=== PATIENT | male | born 1945 | race Caucasian/White ===

== ENCOUNTER 2021-12-01 11:13 | Inpatient (IN) | payer MEDICARE ==
[2021-12-01] MEDS ORDERED: traZODone 50 MG Tab FTUBE SCH (21:00)
[2021-12-02] MEDS ORDERED: atorvaSTATin 40 MG Tab FTUBE SCH (09:00)
[2021-12-02] MEDS ORDERED: Aspirin 81 MG Tab.Chew FTUBE SCH (09:00)
[2021-12-02] MEDS ORDERED: Lisinopril 10 MG Tab FTUBE SCH (09:00)
[2021-12-02] MEDS: traZODone 50 MG Tab PO SCH (20:38)
[2021-12-03] MEDS: atorvaSTATin 40 MG Tab PO SCH (08:56)
[2021-12-03] MEDS: Aspirin 81 MG Tab.Chew PO SCH (08:56)
[2021-12-03] MEDS: Lisinopril 10 MG Tab PO SCH (08:56)
[2021-12-03] MEDS: traZODone 50 MG Tab PO SCH (19:59)
[2021-12-03] MEDS: Acetaminophen 325 MG Tab PO PRN (19:59)
[2021-12-04] MEDS: Acetaminophen 325 MG Tab PO PRN (07:57)
[2021-12-04] MEDS: atorvaSTATin 40 MG Tab PO SCH (07:59)
[2021-12-04] MEDS: Lisinopril 10 MG Tab PO SCH (07:59)
[2021-12-04] MEDS: Aspirin 81 MG Tab.Chew PO SCH (07:59)
[2021-12-04] MEDS: traZODone 50 MG Tab PO SCH (20:31)
[2021-12-05] MEDS: Lisinopril 10 MG Tab PO SCH (08:12)
[2021-12-05] MEDS: Aspirin 81 MG Tab.Chew PO SCH (08:12)
[2021-12-05] MEDS: atorvaSTATin 40 MG Tab PO SCH (08:12)
[2021-12-05] MEDS: traZODone 50 MG Tab PO SCH (20:58)
[2021-12-06] MEDS: Acetaminophen 325 MG Tab PO PRN ×2 (02:15→21:12)
[2021-12-06] MEDS: Lisinopril 10 MG Tab PO SCH (09:31)
[2021-12-06] MEDS: atorvaSTATin 40 MG Tab PO SCH (09:32)
[2021-12-06] MEDS: Aspirin 81 MG Tab.Chew PO SCH (09:32)
[2021-12-06] MEDS: traZODone 50 MG Tab PO SCH (20:28)
[2021-12-07] MEDS: Lisinopril 10 MG Tab PO SCH (08:39)
[2021-12-07] MEDS: atorvaSTATin 40 MG Tab PO SCH (08:39)
[2021-12-07] MEDS: Aspirin 81 MG Tab.Chew PO SCH (08:39)
[2021-12-07] MEDS: Acetaminophen 325 MG Tab PO PRN (20:44)
[2021-12-07] MEDS: traZODone 50 MG Tab PO SCH (20:44)
[2021-12-08] MEDS: Acetaminophen 325 MG Tab PO PRN ×2 (02:53→21:16)
[2021-12-08] MEDS: Aspirin 81 MG Tab.Chew PO SCH (08:14)
[2021-12-08] MEDS: atorvaSTATin 40 MG Tab PO SCH (08:15)
[2021-12-08] MEDS: Lisinopril 10 MG Tab PO SCH (10:50)
[2021-12-08] MEDS: traZODone 50 MG Tab PO SCH (21:16)
[2021-12-09] MEDS: Acetaminophen 325 MG Tab PO PRN ×2 (04:23→21:01)
[2021-12-09] MEDS: Aspirin 81 MG Tab.Chew PO SCH (09:52)
[2021-12-09] MEDS: atorvaSTATin 40 MG Tab PO SCH (09:52)
[2021-12-09] MEDS: Lisinopril 10 MG Tab PO SCH (09:56)
[2021-12-09] MEDS: traZODone 50 MG Tab PO SCH (20:59)
[2021-12-10] MEDS: Acetaminophen 325 MG Tab PO PRN ×2 (02:43→21:43)
[2021-12-10] MEDS: Lisinopril 10 MG Tab PO SCH (09:54)
[2021-12-10] MEDS: atorvaSTATin 40 MG Tab PO SCH (09:54)
[2021-12-10] MEDS: Aspirin 81 MG Tab.Chew PO SCH (09:54)
[2021-12-10] MEDS: traZODone 50 MG Tab PO SCH (21:42)
[2021-12-11] MEDS: atorvaSTATin 40 MG Tab PO SCH (08:34)
[2021-12-11] MEDS: Lisinopril 10 MG Tab PO SCH (08:34)
[2021-12-11] MEDS: Aspirin 81 MG Tab.Chew PO SCH (08:34)
[2021-12-11] MEDS: traZODone 50 MG Tab PO SCH (20:41)
[2021-12-11] MEDS: Acetaminophen 325 MG Tab PO PRN (20:42)
[2021-12-12] MEDS: Acetaminophen 325 MG Tab PO PRN (04:49)
[2021-12-12] MEDS: atorvaSTATin 40 MG Tab PO SCH (08:45)
[2021-12-12] MEDS: Aspirin 81 MG Tab.Chew PO SCH (08:45)
[2021-12-12] MEDS: Lisinopril 10 MG Tab PO SCH (08:45)
[2021-12-12] MEDS: traZODone 50 MG Tab PO SCH (20:51)
[2021-12-13] MEDS: Aspirin 81 MG Tab.Chew PO SCH (08:31)
[2021-12-13] MEDS: atorvaSTATin 40 MG Tab PO SCH (08:31)
[2021-12-13] MEDS: Lisinopril 10 MG Tab PO SCH (08:31)
[2021-12-13] MEDS: traZODone 50 MG Tab PO SCH (20:56)
[2021-12-14] MEDS: Lisinopril 10 MG Tab PO SCH (08:34)
[2021-12-14] MEDS: Aspirin 81 MG Tab.Chew PO SCH (08:34)
[2021-12-14] MEDS: atorvaSTATin 40 MG Tab PO SCH (08:35)
[2021-12-14] MEDS: traZODone 50 MG Tab PO SCH (21:07)
[2021-12-15] MEDS: atorvaSTATin 40 MG Tab PO SCH (08:44)
[2021-12-15] MEDS: Aspirin 81 MG Tab.Chew PO SCH (08:44)
[2021-12-15] MEDS: Lisinopril 10 MG Tab PO SCH (08:44)
[2021-12-15] MEDS: traZODone 50 MG Tab PO SCH (20:41)
[2021-12-16] MEDS: Aspirin 81 MG Tab.Chew PO SCH (08:09)
[2021-12-16] MEDS: atorvaSTATin 40 MG Tab PO SCH (08:09)
[2021-12-16] MEDS: Lisinopril 10 MG Tab PO SCH (08:09)
== END 2021-12-16 10:15 | disposition home health service (06) | DRG 948 ==
LOC: FB.MS 12:08
PROVIDERS: ADMIT Family Medicine; ATTEND Family Medicine
DX: R53.1 Weakness (principal); E78.5 Hyperlipidemia, unspecified; I10 Essential (primary) hypertension; R29.6 Repeated falls; E78.00 Pure hypercholesterolemia, unspecified; M54.59 Other low back pain; Z20.822 Contact with and (suspected) exposure to COVID-19; Z90.89 Acquired absence of other organs; Z97.8 Presence of other specified devices; Z86.73 Personal history of transient ischemic attack (TIA), and cerebral infarction without residual deficits; Z79.02 Long term (current) use of antithrombotics/antiplatelets; Z79.82 Long term (current) use of aspirin; Z79.899 Other long term (current) drug therapy; Z90.49 Acquired absence of other specified parts of digestive tract
CPT/HCPCS: 97110-GO; 97110-GP; 97112-GO; 97112-GP; 97116-GP; 97161-GP; 97166-GO; 97530-GO; 97535-GO; A9270-GY; U0002

== ENCOUNTER 2022-09-08 12:21 | Emergency (ER) | payer OTHER, MEDICARE ==
[2022-09-08] MEDS ORDERED: fentaNYL 100 MCG/2 ML SDV IVPUSH STA (13:07)
[2022-09-08] MEDS ORDERED: Sodium Chloride 0.9% 1,000 ML IV SCH (13:15)
[2022-09-08 13:45] LABS: ESTIMATED GFR 57 mL/min (>60)
[2022-09-08] MEDS ORDERED: Ketorolac 30 MG/ML SDV IVPUSH ONE (14:44)
[2022-09-08] MEDS ORDERED: Acetaminophen/oxyCODONE 325-5 MG Tab PO STA (14:44)
== END 2022-09-08 17:25 | disposition home or self-care (01) ==
LOC: FB.ED 12:21
DX: M51.36 Other intervertebral disc degeneration, lumbar region (principal); M51.34 Other intervertebral disc degeneration, thoracic region; E78.00 Pure hypercholesterolemia, unspecified; I10 Essential (primary) hypertension; Z79.82 Long term (current) use of aspirin; Z79.899 Other long term (current) drug therapy; Z90.49 Acquired absence of other specified parts of digestive tract
CPT/HCPCS: 36415; 71045; 72128; 72131; 80053; 81001; 82550; 83880; 84484; 85025; 93005; 93010; 96361; 96374; 96375; 99284; 99285; A9270; J1885; J3010; J7030

== ENCOUNTER 2022-09-21 08:56 | Inpatient (IN) | payer OTHER, MEDICARE ==
[2022-09-21] MEDS ORDERED: Albuterol 8 GM Inhaler INH PRN (14:09)
[2022-09-21] MEDS ORDERED: Calcium Carbonate 500 MG Tab.Chew PO PRN (14:43)
[2022-09-21] MEDS ORDERED: Nicotine Polacrilex 2 MG Gum BUCCAL PRN (14:45)
[2022-09-21] MEDS: Gabapentin 300 MG Cap PO SCH (21:32)
[2022-09-21] MEDS: traZODone 50 MG Tab PO SCH (21:33)
[2022-09-21] MEDS: Docusate Sodium 100 MG Cap PO SCH (21:33)
[2022-09-21] MEDS: atorvaSTATin 40 MG Tab PO SCH (21:33)
[2022-09-22] MEDS: Pantoprazole 40 MG Tab.CR PO SCH (07:28)
[2022-09-22] MEDS: Formoterol/Mometasone 100-5 MCG 8.8 GM Inhaler IH SCH ×2 (08:05→20:42)
[2022-09-22] MEDS: Docusate Sodium 100 MG Cap PO SCH ×2 (08:05→20:45)
[2022-09-22] MEDS: Lidocaine 4% 1 each Patch TOP SCH (08:05)
[2022-09-22] MEDS: Nicotine 14 MG/24 Hr Patch TOP SCH (08:07)
[2022-09-22] MEDS: Aspirin 81 MG Tab.EC PO SCH (08:07)
[2022-09-22] MEDS: amLODIPine 5 MG Tab PO SCH (08:07)
[2022-09-22] MEDS: Gabapentin 300 MG Cap PO SCH ×3 (08:09→20:42)
[2022-09-22] MEDS: Acetaminophen 500 MG Tab PO PRN (17:34)
[2022-09-22] MEDS: traZODone 50 MG Tab PO SCH (20:45)
[2022-09-22] MEDS: atorvaSTATin 40 MG Tab PO SCH (20:45)
[2022-09-23] MEDS: Pantoprazole 40 MG Tab.CR PO SCH (06:49)
[2022-09-23] MEDS: amLODIPine 5 MG Tab PO SCH (08:20)
[2022-09-23] MEDS: Lidocaine 4% 1 each Patch TOP SCH (08:20)
[2022-09-23] MEDS: Formoterol/Mometasone 100-5 MCG 8.8 GM Inhaler IH SCH ×2 (08:24→20:26)
[2022-09-23] MEDS: Gabapentin 300 MG Cap PO SCH ×3 (08:24→20:27)
[2022-09-23] MEDS: Acetaminophen 500 MG Tab PO PRN (08:24)
[2022-09-23] MEDS: Aspirin 81 MG Tab.EC PO SCH (08:24)
[2022-09-23] MEDS: Docusate Sodium 100 MG Cap PO SCH ×2 (08:24→20:26)
[2022-09-23] MEDS: Nicotine 14 MG/24 Hr Patch TOP SCH (08:26)
[2022-09-23] MEDS: traZODone 50 MG Tab PO SCH (20:26)
[2022-09-23] MEDS: atorvaSTATin 40 MG Tab PO SCH (20:27)
[2022-09-24] MEDS: Acetaminophen 500 MG Tab PO PRN ×3 (04:00→23:23)
[2022-09-24] MEDS: Pantoprazole 40 MG Tab.CR PO SCH (06:51)
[2022-09-24] MEDS: Lidocaine 4% 1 each Patch TOP SCH (09:00)
[2022-09-24] MEDS: Docusate Sodium 100 MG Cap PO SCH ×2 (10:43→20:52)
[2022-09-24] MEDS: Formoterol/Mometasone 100-5 MCG 8.8 GM Inhaler IH SCH ×2 (10:44→20:51)
[2022-09-24] MEDS: Nicotine 14 MG/24 Hr Patch TOP SCH (10:44)
[2022-09-24] MEDS: Aspirin 81 MG Tab.EC PO SCH (10:46)
[2022-09-24] MEDS: Gabapentin 300 MG Cap PO SCH ×3 (10:46→20:50)
[2022-09-24] MEDS: amLODIPine 5 MG Tab PO SCH (10:47)
[2022-09-24] MEDS: Melatonin 3 MG Tab PO SCH (20:50)
[2022-09-24] MEDS: atorvaSTATin 40 MG Tab PO SCH (20:51)
[2022-09-24] MEDS: traZODone 50 MG Tab PO SCH (20:51)
[2022-09-25] MEDS: Pantoprazole 40 MG Tab.CR PO SCH (06:53)
[2022-09-25] MEDS: Formoterol/Mometasone 100-5 MCG 8.8 GM Inhaler IH SCH ×2 (08:35→21:20)
[2022-09-25] MEDS: Nicotine 14 MG/24 Hr Patch TOP SCH (08:35)
[2022-09-25] MEDS: Lidocaine 4% 1 each Patch TOP SCH (08:35)
[2022-09-25] MEDS: Aspirin 81 MG Tab.EC PO SCH (08:35)
[2022-09-25] MEDS: Docusate Sodium 100 MG Cap PO SCH ×2 (08:35→21:20)
[2022-09-25] MEDS: amLODIPine 5 MG Tab PO SCH (08:35)
[2022-09-25] MEDS: Gabapentin 300 MG Cap PO SCH ×3 (08:38→21:26)
[2022-09-25] MEDS: Acetaminophen 500 MG Tab PO PRN (12:45)
[2022-09-25] MEDS: atorvaSTATin 40 MG Tab PO SCH (21:20)
[2022-09-25] MEDS: Melatonin 3 MG Tab PO SCH (21:20)
[2022-09-25] MEDS: traZODone 50 MG Tab PO SCH (21:21)
[2022-09-26] MEDS: Pantoprazole 40 MG Tab.CR PO SCH (06:49)
[2022-09-26] MEDS: Docusate Sodium 100 MG Cap PO SCH ×2 (08:25→22:17)
[2022-09-26] MEDS: Gabapentin 300 MG Cap PO SCH ×3 (08:25→22:30)
[2022-09-26] MEDS: Nicotine 14 MG/24 Hr Patch TOP SCH (08:26)
[2022-09-26] MEDS: Lidocaine 4% 1 each Patch TOP SCH (08:26)
[2022-09-26] MEDS: Formoterol/Mometasone 100-5 MCG 8.8 GM Inhaler IH SCH ×2 (08:26→22:18)
[2022-09-26] MEDS: amLODIPine 5 MG Tab PO SCH (08:27)
[2022-09-26] MEDS: Aspirin 81 MG Tab.EC PO SCH (08:27)
[2022-09-26] MEDS: atorvaSTATin 40 MG Tab PO SCH (22:18)
[2022-09-26] MEDS: Melatonin 3 MG Tab PO SCH (22:19)
[2022-09-26] MEDS: traZODone 50 MG Tab PO SCH (22:22)
[2022-09-27] MEDS: Pantoprazole 40 MG Tab.CR PO SCH (07:06)
[2022-09-27] MEDS: Aspirin 81 MG Tab.EC PO SCH (08:22)
[2022-09-27] MEDS: Docusate Sodium 100 MG Cap PO SCH ×2 (08:22→20:15)
[2022-09-27] MEDS: Formoterol/Mometasone 100-5 MCG 8.8 GM Inhaler IH SCH ×2 (08:22→20:15)
[2022-09-27] MEDS: amLODIPine 5 MG Tab PO SCH (08:25)
[2022-09-27] MEDS: Nicotine 14 MG/24 Hr Patch TOP SCH (09:28)
[2022-09-27] MEDS: Lidocaine 4% 1 each Patch TOP SCH (09:29)
[2022-09-27] MEDS: Gabapentin 300 MG Cap PO SCH ×3 (09:30→20:15)
[2022-09-27] MEDS: atorvaSTATin 40 MG Tab PO SCH (20:14)
[2022-09-27] MEDS: Melatonin 3 MG Tab PO SCH (20:14)
[2022-09-27] MEDS: traZODone 50 MG Tab PO SCH (20:15)
[2022-09-28] MEDS: Pantoprazole 40 MG Tab.CR PO SCH (06:52)
[2022-09-28] MEDS: Formoterol/Mometasone 100-5 MCG 8.8 GM Inhaler IH SCH ×2 (09:19→20:15)
[2022-09-28] MEDS: Gabapentin 300 MG Cap PO SCH ×3 (09:19→20:14)
[2022-09-28] MEDS: Docusate Sodium 100 MG Cap PO SCH ×2 (09:19→20:15)
[2022-09-28] MEDS: Aspirin 81 MG Tab.EC PO SCH (09:19)
[2022-09-28] MEDS: Nicotine 14 MG/24 Hr Patch TOP SCH (09:20)
[2022-09-28] MEDS: amLODIPine 5 MG Tab PO SCH (09:20)
[2022-09-28] MEDS: Lidocaine 4% 1 each Patch TOP SCH (09:21)
[2022-09-28] MEDS: traZODone 50 MG Tab PO SCH (20:15)
[2022-09-28] MEDS: Melatonin 3 MG Tab PO SCH (20:15)
[2022-09-28] MEDS: atorvaSTATin 40 MG Tab PO SCH (20:15)
[2022-09-29] MEDS: Pantoprazole 40 MG Tab.CR PO SCH (06:50)
[2022-09-29 07:26] VITALS: BP 115/59; PULSE 64
[2022-09-29] MEDS: Formoterol/Mometasone 100-5 MCG 8.8 GM Inhaler IH SCH (08:04)
[2022-09-29] MEDS: Nicotine 14 MG/24 Hr Patch TOP SCH (08:04)
[2022-09-29] MEDS: Lidocaine 4% 1 each Patch TOP SCH (08:04)
[2022-09-29] MEDS: Aspirin 81 MG Tab.EC PO SCH (08:04)
[2022-09-29] MEDS: amLODIPine 5 MG Tab PO SCH (08:05)
[2022-09-29] MEDS: Docusate Sodium 100 MG Cap PO SCH (08:05)
[2022-09-29] MEDS: Gabapentin 300 MG Cap PO SCH (08:08)
== END 2022-09-29 11:15 | disposition home health service (06) | DRG 559 ==
LOC: FB.MS 12:13
PROVIDERS: ADMIT Family Medicine; ATTEND Student in an Organized Health Care Education/Training Program
DX: S32.040D Wedge compression fracture of fourth lumbar vertebra, subsequent encounter for fracture with routine healing (principal); U07.1 COVID-19; E87.1 Hypo-osmolality and hyponatremia; J43.9 Emphysema, unspecified; M51.36 Other intervertebral disc degeneration, lumbar region; E78.5 Hyperlipidemia, unspecified; I10 Essential (primary) hypertension; E78.2 Mixed hyperlipidemia; R29.6 Repeated falls; E78.00 Pure hypercholesterolemia, unspecified; F17.200 Nicotine dependence, unspecified, uncomplicated; R53.1 Weakness; Z79.82 Long term (current) use of aspirin; Z79.899 Other long term (current) drug therapy; Z86.73 Personal history of transient ischemic attack (TIA), and cerebral infarction without residual deficits
CPT/HCPCS: 97116-GP; 97161-GP; 97165-GO; 97530-GO; 97530-GP; 97535-GO; 97760-GO; A9270-GY

== ENCOUNTER 2023-01-23 07:24 | Day surgery (SDC) | payer MEDICARE ==
[2023-01-23] MEDS ORDERED: Midazolam 1 MG/ML 2 ML SDV IV ONE (07:25)
[2023-01-23] MEDS ORDERED: fentaNYL 100 MCG/2 ML SDV IV ONE (07:25)
[2023-01-23] MEDS ORDERED: Albuterol 6.7 GM Inhaler INH ONE (07:25)
[2023-01-23] MEDS ORDERED: Sodium Chloride 0.9% 10 ML Syringe FLUSH PRN (07:30)
[2023-01-23] MEDS ORDERED: Lactated Ringers 1,000 ML IV PRN (07:30)
[2023-01-23] MEDS ORDERED: acetaZOLAMIDE 500 MG Cap.ER PO ONE (09:30)
== END 2023-01-23 09:55 | disposition home or self-care (01) ==
LOC: FB.SDS 07:24
PROVIDERS: ATTEND Ophthalmology
DX: H25.812 Combined forms of age-related cataract, left eye (principal); I10 Essential (primary) hypertension; R53.1 Weakness; I50.30 Unspecified diastolic (congestive) heart failure; Z86.73 Personal history of transient ischemic attack (TIA), and cerebral infarction without residual deficits
CPT/HCPCS: 00142; A9270-GY; J2250; J3010; J3490; V2632

== ENCOUNTER 2023-02-13 06:43 | Day surgery (SDC) | payer MEDICARE ==
[2023-02-13] MEDS ORDERED: Midazolam 1 MG/ML 2 ML SDV IV ONE (06:44)
[2023-02-13] MEDS ORDERED: fentaNYL 100 MCG/2 ML SDV IV ONE (06:44)
[2023-02-13] MEDS ORDERED: Lactated Ringers 1,000 ML IV PRN (06:45)
[2023-02-13] MEDS: Sodium Chloride 0.9% 10 ML Syringe FLUSH PRN (07:30)
[2023-02-13] MEDS: acetaZOLAMIDE 500 MG Cap.ER PO ONE (09:15)
== END 2023-02-13 09:36 | disposition home or self-care (01) ==
LOC: FB.SDS 06:43
PROVIDERS: ATTEND Ophthalmology
DX: H25.9 Unspecified age-related cataract (principal); J44.9 Chronic obstructive pulmonary disease, unspecified; Z86.73 Personal history of transient ischemic attack (TIA), and cerebral infarction without residual deficits; Z79.899 Other long term (current) drug therapy
CPT/HCPCS: 00142; A9270-GY; J2250; J3010; J3490; V2632

== ENCOUNTER 2024-11-06 15:29 | Inpatient (IN) | payer MEDICARE ==
[2024-11-06] MEDS: Sodium Chloride 0.9% 1,000 ML IV SCH ×2 (16:02→20:31)
[2024-11-06 16:09] LABS: HEMATOCRIT 33.3 % (38.3-50.1); HEMOGLOBIN 11.3 g/dL (12.9-17.7); MEAN CORPUSCULAR HEMOGLOBIN 31.1 pg (27.0-33.3); MEAN CORPUSCULAR HGB CONC 33.9 g/dL (28.7-35.3); MEAN CORPUSCULAR VOLUME 91.9 fL (80.8-98.7); MEAN PLATELET VOLUME 7.3 fL (6.7-11.0); PLATELET COUNT,PLT 776 x10(3)uL (117-477); RED BLOOD CELL COUNT 3.62 x10(6)uL (3.90-5.90); RED CELL DISTRIBUTION WIDTH 14.2 % (12.4-15.0); WHITE BLOOD CELL COUNT,WBC 27.9 x10-3/uL (3.2-10.1)
[2024-11-06 16:14] LABS: BLOOD UREA NITROGEN,BUN 23 mg/dL (7-18); BUN/CREATININE RATIO 16.4 (9-20); CALCIUM 8.5 mg/dL (8.6-10.2); CARBON DIOXIDE,CO2 25 mmol/L (21-32); CHLORIDE,CL 102 mmol/L (100-110); CREATININE 1.4 mg/dL (0.70-1.30); EST CRCL DRUG DOSING (CG) 35.15 mL/min; ESTIMATED GFR 52 mL/min (>60); GLUCOSE RANDOM 116 mg/dL (80-116); POTASSIUM,K 4.4 mmol/L (3.5-5.3); SODIUM,NA 134 mmol/L (135-145)
[2024-11-06 16:20] LABS: A/G RATIO 0.3; ALANINE AMINOTRANSFERASE,ALT 50 U/L (12-36); ALKALINE PHOSPHATASE 102 IU/L (56-112); ASPARTATE AMNIOTRANSFERASE,AST 69 IU/L (5-25); BILIRUBIN TOTAL 0.3 mg/dL (0.1-1.3); PROTEIN TOTAL,TP 6.9 g/dL (6.0-8.0)
[2024-11-06 16:24] LABS: LACTIC ACID 0.8 mmol/L (0.4-2.0)
[2024-11-06 16:27] LABS: TROPONIN I 6.2 pg/mL (4.0-60.3)
[2024-11-06 16:31] LABS: ALBUMIN 1.6 g/dL (3.2-4.6)
[2024-11-06 16:32] LABS: BAND PERCENT MAN 5 % (0-6); BASOPHILS PERCENT MAN 1 % (0-2); EOSINOPHILS PERCENT MAN 3 % (0-5); LYMPHOCYTES PERCENT MAN 10 % (13-37); MONOCYTES PERCENT MAN 6 % (4-12); SEG NEUTROPHILS PERCENT MAN 75 % (46-82)
[2024-11-06] MEDS: cefTRIAXone 1 GM Vial IVPUSH SCH (17:18)
[2024-11-06] MEDS ORDERED: Ondansetron 4 MG/2 ML SDV IV PRN (17:20)
[2024-11-06] MEDS ORDERED: Sennosides/Docusate Sodium 50-8.6 MG Tab PO PRN (17:20)
[2024-11-06] MEDS: Azithromycin 500 MG in Sodium Chloride 0.9% 250 ML IV SCH (17:25)
[2024-11-06 18:35] LABS: BILIRUBIN,URINE NEGATIVE (NEGATIVE); GLUCOSE,URINE NORMAL (NORMAL); KETONES,URINE NEGATIVE (NEGATIVE); LEUKOCYTE ESTERASE,URINE NEGATIVE (NEGATIVE); NITRITE,URINE NEGATIVE (NEGATIVE); OCCULT BLOOD,URINE TRACE (NEGATIVE); PROTEIN,URINE TRACE mg/dL (NEGATIVE); UROBILINOGEN,URINE 4 mg/dL (NEGATIVE)
[2024-11-06 18:38] LABS: APPEARANCE,URINE CLEAR (CLEAR); COLOR,URINE YELLOW (YELLOW)
[2024-11-06 18:39] LABS: BACTERIA,URINE OCCASIONAL (NS); RBC,URINE 0-5 (0-5); SQUAMOUS EPITHELIAL CELLS,UR OCCASIONAL (NS,R,O); WBC,URINE 0-5 (0-5)
[2024-11-06] MEDS: Albuterol/Ipratropium 3.0-0.5 MG/3 ML Neb Soln NEB SCH (20:26)
[2024-11-06] MEDS: Enoxaparin 40 MG/0.4 ML Syringe SUBCUT SCH (20:53)
[2024-11-07] MEDS: Acetaminophen 325 MG Tab PO PRN (01:01)
[2024-11-07] MEDS: Enoxaparin 40 MG/0.4 ML Syringe SUBCUT SCH (07:12)
[2024-11-07 07:21] LABS: HEMATOCRIT 32.8 % (38.3-50.1); HEMOGLOBIN 10.9 g/dL (12.9-17.7); MEAN CORPUSCULAR HEMOGLOBIN 30.5 pg (27.0-33.3); MEAN CORPUSCULAR HGB CONC 33.3 g/dL (28.7-35.3); MEAN CORPUSCULAR VOLUME 91.6 fL (80.8-98.7); MEAN PLATELET VOLUME 6.9 fL (6.7-11.0); PLATELET COUNT,PLT 716 x10(3)uL (117-477); RED BLOOD CELL COUNT 3.59 x10(6)uL (3.90-5.90); RED CELL DISTRIBUTION WIDTH 14.4 % (12.4-15.0)
[2024-11-07 07:34] LABS: A/G RATIO 0.3; ALANINE AMINOTRANSFERASE,ALT 41 U/L (12-36); ALKALINE PHOSPHATASE 93 IU/L (56-112); ASPARTATE AMNIOTRANSFERASE,AST 46 IU/L (5-25); BILIRUBIN TOTAL 0.3 mg/dL (0.1-1.3); BLOOD UREA NITROGEN,BUN 16 mg/dL (7-18); CARBON DIOXIDE,CO2 23 mmol/L (21-32); CHLORIDE,CL 104 mmol/L (100-110); EST CRCL DRUG DOSING (CG) 50.58 mL/min; ESTIMATED GFR 78 mL/min (>60); GLUCOSE RANDOM 117 mg/dL (80-116); POTASSIUM,K 4.3 mmol/L (3.5-5.3); SODIUM,NA 135 mmol/L (135-145)
[2024-11-07 07:48] LABS: LYMPHOCYTES PERCENT MAN 6 % (13-37); MONOCYTES PERCENT MAN 4 % (4-12); SEG NEUTROPHILS PERCENT MAN 90 % (46-82)
[2024-11-07 08:01] LABS: ALBUMIN 1.3 g/dL (3.2-4.6)
[2024-11-07] MEDS ORDERED: Albuterol 6.7 GM Inhaler INH PRN (10:52)
[2024-11-07] MEDS: Nicotine 14 MG/24 Hr Patch TRDERM SCH (11:28)
[2024-11-07] MEDS: Lidocaine 4% Patch TOP SCH (11:29)
[2024-11-07] MEDS: Aspirin 81 MG Tab.EC PO SCH (11:30)
[2024-11-07] MEDS: cefTRIAXone 2 GM Vial IVPUSH SCH (14:02)
[2024-11-07] MEDS: Gabapentin 300 MG Cap PO SCH (14:03)
[2024-11-07] MEDS: Rosuvastatin 10 MG Tab PO SCH (20:58)
[2024-11-07] MEDS: traZODone 50 MG Tab PO SCH (20:59)
[2024-11-08] MEDS: Benzonatate 100 MG Cap PO PRN ×2 (03:57→13:44)
[2024-11-08] MEDS: Albuterol 0.083% 2.5 MG/3 ML Neb Soln NEB PRN (03:57)
[2024-11-08 06:36] LABS: HEMATOCRIT 29.9 % (38.3-50.1); HEMOGLOBIN 10.3 g/dL (12.9-17.7); MEAN CORPUSCULAR HEMOGLOBIN 31.4 pg (27.0-33.3); MEAN CORPUSCULAR HGB CONC 34.5 g/dL (28.7-35.3); MEAN PLATELET VOLUME 6.5 fL (6.7-11.0); PLATELET COUNT,PLT 722 x10(3)uL (117-477); RED BLOOD CELL COUNT 3.29 x10(6)uL (3.90-5.90); RED CELL DISTRIBUTION WIDTH 14.3 % (12.4-15.0); WHITE BLOOD CELL COUNT,WBC 21.7 x10-3/uL (3.2-10.1)
[2024-11-08 06:43] LABS: BLOOD UREA NITROGEN,BUN 8 mg/dL (7-18); BUN/CREATININE RATIO 8.9 (9-20); CALCIUM 7.9 mg/dL (8.6-10.2); CARBON DIOXIDE,CO2 22 mmol/L (21-32); CHLORIDE,CL 105 mmol/L (100-110); CREATININE 0.9 mg/dL (0.70-1.30); ESTIMATED GFR 88 mL/min (>60); GLUCOSE RANDOM 125 mg/dL (80-116); POTASSIUM,K 4.2 mmol/L (3.5-5.3); SODIUM,NA 135 mmol/L (135-145)
[2024-11-08 06:50] LABS: LYMPHOCYTES PERCENT MAN 5 % (13-37); MONOCYTES PERCENT MAN 2 % (4-12); SEG NEUTROPHILS PERCENT MAN 93 % (46-82)
[2024-11-08] MEDS: Lisinopril 5 MG Tab PO SCH (10:08)
[2024-11-08] MEDS: Tiotropium Bromide 4 GM Inhalation Spray (2.5mcg/1 dose; 10 doses) INH SCH (10:09)
[2024-11-08] MEDS: Multivitamin Tab PO SCH (10:10)
[2024-11-08] MEDS: methylPREDNISolone Sodium Succinate 125 MG/2 ML SDV IVPUSH SCH (11:15)
[2024-11-09 04:45] LABS: ALBUMIN/CREATININE RATIO 19 mg/g (0-30); CREATININE,URINE - PER VOLUME 210 mg/dL; HOURS COLLECTED Random hr; TOTAL VOLUME Random mL
[2024-11-09 06:44] LABS: HEMATOCRIT 33.3 % (38.3-50.1); HEMOGLOBIN 11.3 g/dL (12.9-17.7); MEAN CORPUSCULAR HEMOGLOBIN 31.1 pg (27.0-33.3); MEAN CORPUSCULAR VOLUME 91.4 fL (80.8-98.7); MEAN PLATELET VOLUME 7.3 fL (6.7-11.0); PLATELET COUNT,PLT 779 x10(3)uL (117-477); RED BLOOD CELL COUNT 3.64 x10(6)uL (3.90-5.90); RED CELL DISTRIBUTION WIDTH 14.3 % (12.4-15.0); WHITE BLOOD CELL COUNT,WBC 14.8 x10-3/uL (3.2-10.1)
[2024-11-09 06:50] LABS: BLOOD UREA NITROGEN,BUN 10 mg/dL (7-18); BUN/CREATININE RATIO 12.5 (9-20); CALCIUM 8.7 mg/dL (8.6-10.2); CARBON DIOXIDE,CO2 22 mmol/L (21-32); CHLORIDE,CL 106 mmol/L (100-110); CREATININE 0.8 mg/dL (0.70-1.30); EST CRCL DRUG DOSING (CG) 63.22 mL/min; ESTIMATED GFR 91 mL/min (>60); GLUCOSE RANDOM 165 mg/dL (80-116); POTASSIUM,K 4.5 mmol/L (3.5-5.3); SODIUM,NA 137 mmol/L (135-145)
[2024-11-09 07:14] LABS: BAND PERCENT MAN 1 % (0-6); LYMPHOCYTES PERCENT MAN 6 % (13-37); MONOCYTES PERCENT MAN 1 % (4-12); SEG NEUTROPHILS PERCENT MAN 92 % (46-82)
[2024-11-09] MEDS: Sodium Chloride 0.9% 10 ML Syringe FLUSH PRN (11:05)
[2024-11-10 06:53] LABS: HEMATOCRIT 30.5 % (38.3-50.1); HEMOGLOBIN 10.4 g/dL (12.9-17.7); MEAN CORPUSCULAR HEMOGLOBIN 30.8 pg (27.0-33.3); MEAN CORPUSCULAR VOLUME 90.8 fL (80.8-98.7); PLATELET COUNT,PLT 721 x10(3)uL (117-477); RED BLOOD CELL COUNT 3.36 x10(6)uL (3.90-5.90); RED CELL DISTRIBUTION WIDTH 14.2 % (12.4-15.0); WHITE BLOOD CELL COUNT,WBC 18.4 x10-3/uL (3.2-10.1)
[2024-11-10 06:54] LABS: BLOOD UREA NITROGEN,BUN 14 mg/dL (7-18); BUN/CREATININE RATIO 17.5 (9-20); CALCIUM 8.1 mg/dL (8.6-10.2); CARBON DIOXIDE,CO2 21 mmol/L (21-32); CHLORIDE,CL 108 mmol/L (100-110); CREATININE 0.8 mg/dL (0.70-1.30); EST CRCL DRUG DOSING (CG) 63.22 mL/min; ESTIMATED GFR 91 mL/min (>60); GLUCOSE RANDOM 132 mg/dL (80-116); POTASSIUM,K 4.4 mmol/L (3.5-5.3); SODIUM,NA 137 mmol/L (135-145)
[2024-11-10 07:25] LABS: EOSINOPHILS PERCENT MAN 1 % (0-5); LYMPHOCYTES PERCENT MAN 7 % (13-37); MONOCYTES PERCENT MAN 1 % (4-12); SEG NEUTROPHILS PERCENT MAN 91 % (46-82)
[2024-11-10] MEDS ORDERED: Fluticasone NASAL Spray 16 GM Bottle NASBOTH PRN (18:00)
[2024-11-10] MEDS: Sodium Chloride 0.65% Nasal Spray 45 ML Bottle NAS PRN (18:16)
[2024-11-10] MEDS: methylPREDNISolone Sodium Succinate 40 MG/1 ML SDV IVPUSH SCH (21:01)
[2024-11-11 06:56] LABS: HEMATOCRIT 32.1 % (38.3-50.1); MEAN CORPUSCULAR HEMOGLOBIN 31.4 pg (27.0-33.3); MEAN CORPUSCULAR HGB CONC 34.3 g/dL (28.7-35.3); MEAN CORPUSCULAR VOLUME 91.7 fL (80.8-98.7); MEAN PLATELET VOLUME 7.2 fL (6.7-11.0); PLATELET COUNT,PLT 798 x10(3)uL (117-477); RED CELL DISTRIBUTION WIDTH 14.7 % (12.4-15.0)
[2024-11-11 07:08] LABS: BLOOD UREA NITROGEN,BUN 18 mg/dL (7-18); CALCIUM 8.5 mg/dL (8.6-10.2); CARBON DIOXIDE,CO2 23 mmol/L (21-32); CHLORIDE,CL 106 mmol/L (100-110); EST CRCL DRUG DOSING (CG) 50.58 mL/min; ESTIMATED GFR 78 mL/min (>60); GLUCOSE RANDOM 117 mg/dL (80-116); POTASSIUM,K 4.7 mmol/L (3.5-5.3); SODIUM,NA 136 mmol/L (135-145)
[2024-11-11 07:13] LABS: LYMPHOCYTES PERCENT MAN 11 % (13-37); MONOCYTES PERCENT MAN 1 % (4-12); SEG NEUTROPHILS PERCENT MAN 88 % (46-82)
[2024-11-11 16:08] LABS: STREPTOCOCCUS PNEUMONIAE AG,UR Negative (Negative)
[2024-11-12 01:30] LABS: LEGIONELLA PNEUMOPHILA AG,URN Negative (Negative)
== END 2024-11-11 13:18 | disposition home health service (06) | DRG 193 ==
LOC: FB.ED 15:29 → FB.MS 18:37
PROVIDERS: ADMIT Emergency Medicine; ATTEND Internal Medicine
DX: J18.9 Pneumonia, unspecified organism (principal); J96.01 Acute respiratory failure with hypoxia; R74.01 Elevation of levels of liver transaminase levels; E87.1 Hypo-osmolality and hyponatremia; I69.954 Hemiplegia and hemiparesis following unspecified cerebrovascular disease affecting left non-dominant side; E88.09 Other disorders of plasma-protein metabolism, not elsewhere classified; J44.0 Chronic obstructive pulmonary disease with (acute) lower respiratory infection; R06.89 Other abnormalities of breathing; J44.1 Chronic obstructive pulmonary disease with (acute) exacerbation; F17.200 Nicotine dependence, unspecified, uncomplicated; N17.9 Acute kidney failure, unspecified; E78.00 Pure hypercholesterolemia, unspecified; I10 Essential (primary) hypertension; G89.29 Other chronic pain; M54.9 Dorsalgia, unspecified; E86.0 Dehydration; D64.9 Anemia, unspecified; J43.9 Emphysema, unspecified; Z79.899 Other long term (current) drug therapy; Z90.49 Acquired absence of other specified parts of digestive tract; Z98.890 Other specified postprocedural states; Z79.82 Long term (current) use of aspirin; Z72.0 Tobacco use
CPT/HCPCS: 36415; 71045; 73030; 80053; 81001; 82043; 82570; 83605; 83880; 84484; 85025; 87040 ×2; 93005; 96361; 96374; 99285; J0456; J0696; J7030; J7050; 80048; 82947; 87070; 87205; 87449; 87899; 93010; 94150; 94640; 97161-GP; 97530-GP; 99222; 99232; 99238; A9270-GY; J1650; J2919; U0002